=== PATIENT | female | born 1975 | race Caucasian/White ===

== ENCOUNTER 2021-04-30 10:19 | Emergency (ER) | payer SELFPAY ==
[~2021-04-30] VITALS: Wt 79.4 kg
[2021-04-30 11:16] LABS: HEMATOCRIT 42.8 % (37.0-47.0); MEAN CORPUSCULAR HGB 29.7 pg (27.0-31.0); MEAN CORPUSCULAR HGB CONC 32.2 g/dl (33.0-37.0); MEAN PLATELET VOLUME 10.7 fl (9.6-12.3); PLATELET COUNT AUTOMATED 192 10*3/uL (130-400); RED BLOOD COUNT 4.65 10*6/uL (4.10-5.10); RED CELL DISTRI WIDTH 13.7 % (0-14.5)
[2021-04-30 11:30] LABS: ATYPICAL LYMPHS 2 % (0-0); PLATELET SUFFICIENCY NORMAL (NORMAL); TOTAL CELLS COUNTED 100 #CELLS
[2021-04-30 11:31] LABS: ALBUMIN 3.6 gm/dl (3.1-4.5); ALKALINE PHOSPHATASE 133 U/L (45-117); BUN 15 mg/dl (7-24); CHLORIDE 107 mmol/L (98-107); CREATININE 0.54 mg/dL (0.55-1.02); POTASSIUM 3.2 mmol/L (3.5-5.1); SGOT/AST 76 IU/L (3-35); SGPT/ALT 47 U/L (12-78); SODIUM 138 mmol/L (136-145); TOTAL PROTEIN 7.8 gm/dL (6.4-8.2)
[2021-04-30] MEDS ORDERED: DOXYCYCLINE100 M3 PO (13:33)
== END 2021-04-30 13:57 | disposition home or self-care (01) ==
LOC: ED 10:19
PROVIDERS: Student in an Organized Health Care Education/Training Program
DX: L03.114 Cellulitis of left upper limb (principal); R22.0 Localized swelling, mass and lump, head

== ENCOUNTER 2022-05-30 08:02 | Inpatient (IN) | payer MEDICAID ==
[~2022-05-30] VITALS: Wt 76.2 kg
[~2022-05-30 08:02] MED LIST: DOXYCYCLINE100 M3 PO
[2022-05-30 08:06] VITALS: BP 174/88
[2022-05-30 10:14] LABS: BASO % 0.5 % (0.0-1.0); EOS # 0.1 10*3/uL (0.0-0.4); EOS % 0.6 % (1.0-4.0); HEMATOCRIT 44.8 % (37.0-47.0); LYMPH # 1.7 10*3/uL (1.3-4.4); LYMPH % 20.1 % (27.0-41.0); MEAN CORPUSCULAR HGB 29.1 pg (27.0-31.0); MONO # 0.6 10*3/uL (0.1-1.0); MONO % 7.3 % (3.0-9.0); NEUT % 71.4 % (47.0-73.0); PLATELET COUNT AUTOMATED 298 10*3/uL (130-400); RED BLOOD COUNT 5.09 10*6/uL (4.10-5.10); RED CELL DISTRI WIDTH 14.3 % (0-14.5); WHITE BLOOD COUNT 8.3 10*3/uL (4.8-10.8)
[2022-05-30 10:31] LABS: ALKALINE PHOSPHATASE 87 U/L (45-117); BUN 9 mg/dl (7-24); CHLORIDE 112 mmol/L (98-107); CREATININE 0.56 mg/dL (0.55-1.02); POTASSIUM 3.6 mmol/L (3.5-5.1); SGOT/AST 38 IU/L (3-35); SGPT/ALT 43 U/L (12-78); SODIUM 137 mmol/L (136-145); TOTAL PROTEIN 7.6 gm/dL (6.4-8.2)
[2022-05-30 10:36] LABS: BETA-HCG, QUANT < 1.0 mIU/mL (1-3)
== END 2022-05-30 15:04 | disposition left against medical advice (07) | DRG 770 ==
LOC: ED 08:02 → EDHOLD 09:10
PROVIDERS: Emergency Medicine; ADMIT Internal Medicine; ATTEND Internal Medicine
DX: F11.23 Opioid dependence with withdrawal (principal); R73.9 Hyperglycemia, unspecified; E87.8 Other disorders of electrolyte and fluid balance, not elsewhere classified; R74.01 Elevation of levels of liver transaminase levels; F17.210 Nicotine dependence, cigarettes, uncomplicated; Z53.29 Procedure and treatment not carried out because of patient's decision for other reasons; G44.009 Cluster headache syndrome, unspecified, not intractable; Z98.51 Tubal ligation status; Z83.6 Family history of other diseases of the respiratory system; Z71.6 Tobacco abuse counseling

== ENCOUNTER 2022-06-19 20:04 | Emergency (ER) | payer MEDICAID ==
[~2022-06-19] VITALS: Wt 74.8 kg
[2022-06-19] MEDS ORDERED: SEPTDS PO (20:38)
== END 2022-06-19 20:47 | disposition home or self-care (01) ==
LOC: ED 20:04
DX: L02.414 Cutaneous abscess of left upper limb (principal); F17.200 Nicotine dependence, unspecified, uncomplicated

== ENCOUNTER 2023-07-19 02:55 | Emergency (ER) | payer SELFPAY ==
[~2023-07-19] VITALS: Ht 180.3 cm; Wt 83.9 kg
[~2023-07-19 02:55] MED LIST changes: +SEPTDS PO
[2023-07-19] MEDS ORDERED: NAPROSYN500 MG PO (03:19)
[2023-07-19] MEDS ORDERED: METHOCARBAMOL750 M1 PO (03:19)
== END 2023-07-19 03:30 | disposition home or self-care (01) ==
LOC: ED 02:55
DX: M54.42 Lumbago with sciatica, left side (principal); Z98.51 Tubal ligation status; Z98.890 Other specified postprocedural states; F11.10 Opioid abuse, uncomplicated; F17.200 Nicotine dependence, unspecified, uncomplicated